=== PATIENT | female | born 1965 ===

== ENCOUNTER 2017-10-28 15:37 | Inpatient (IN) | payer OTHER, MEDICARE ==
[2017-10-28 15:39] VITALS: BMI 49.6
[2017-10-28 17:32] LABS: BASO # 0.1 K/uL (0.0-0.2); BASO % 0.7 % (0.0-2.0); EOS # 0.2 K/uL (0.0-0.7); EOS % 2.7 % (0.0-4.0); HEMOGLOBIN 11.1 g/dL (11.0-16.0); LYMPH # 1.7 K/uL (1.0-4.3); LYMPH % 20.2 % (20.0-40.0); MEAN CELL VOLUME 75.5 fL (81.0-99.0); MEAN CORPUSCULAR HEMOGLOBIN 23.9 pg (27.0-31.0); MEAN CORPUSCULAR HGB CONC 31.6 g/dL (33.0-37.0); MEAN PLATELET VOLUME 8.1 fL (7.2-11.7); MONO # 0.4 K/uL (0.0-0.8); MONO % 4.6 % (0.0-10.0); NEUT % 71.8 % (50.0-75.0); RBC 4.66 Mil/uL (3.80-5.20); RED CELL DISTRIBUTION WIDTH 16.5 % (11.5-14.5); WHITE BLOOD COUNT 8.4 K/uL (4.8-10.8)
[2017-10-28 17:45] LABS: ALB/GLOB RATIO 1.3 (1.0-2.1); ALBUMIN 4.5 g/dL (3.5-5.0); ALT/SGPT 37 U/L (9-52); AST/SGOT 45 U/L (14-36); BLOOD UREA NITROGEN 22 mg/dL (7-17); CALCIUM 9.3 mg/dl (8.6-10.4); GFR AFRICAN-AMERICAN > 60; GFR NON-AFRICAN AMERICAN > 60
[2017-10-28 17:56] LABS: B-TYPE NATRIURETIC PEPTIDE 192 pg/mL (0-900)
[2017-10-28] MEDS ORDERED: Sodium Chloride 0.9% 1,000 ML ONE (18:02)
--- NOTE | 2017-10-28 18:21 | RAD ---
Date of service: 10/28/2017 PROCEDURE: CHEST RADIOGRAPH, 1 VIEW HISTORY: SOB COMPARISON: 03/24/2015 FINDINGS: LUNGS: Clear. PLEURA: No pneumothorax or pleural fluid seen. CARDIOVASCULAR: No radiographic findings to suggest acute or significant cardiovascular disease. OSSEOUS STRUCTURES: No significant abnormalities. VISUALIZED UPPER ABDOMEN: Normal. OTHER FINDINGS: None. IMPRESSION: No active disease. No acute/significant interval changes.
--- NOTE | 2017-10-28 18:27 | C.PDOC ---
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) Current Symptoms Are (Timing): Better Severity: Moderate Quality: "Pain" Associated Symptoms: Dyspnea, Diaphoresis Additional History Per: Prior Records Past Medical History Reviewed: Historical Data, Nursing Documentation, Vital Signs Vital Signs: Last Vital Signs Temp 97.8 F 10/28/17 16:02 Pulse 54 L 10/28/17 17:22 Resp 20 10/28/17 17:22 BP 149/82 10/28/17 16:02 Pulse Ox 100 10/28/17 17:22 - Medical History PMH: Anemia (IRON DEFICIENCY), Asthma (never hospitalized), Atrial Fibrillation , HTN Surgical History: Endoscopy - [facility] Procedures CORONAR ARTERIOGR-2 CATH (06/16/14) LEFT HEART CARDIAC CATH (06/16/14) LT HEART ANGIOCARDIOGRAM (06/16/14) Family History: States: Unknown Family Hx - Social History Hx Tobacco Use: No Hx Alcohol Use: No Hx Substance Use: No - Immunization History Hx Tetanus Toxoid Vaccination: No Hx Influenza Vaccination: No Hx Pneumococcal Vaccination: No Review Of Systems Except As Marked, All Systems Reviewed And Found Negative. Constitutional: Negative for: Fever Cardiovascular: Positive for: Chest Pain, Light Headedness Respiratory: Positive for: Shortness of Breath. Negative for: Hemoptysis Gastrointestinal: Negative for: Vomiting Genitourinary: Negative for: Dysuria Musculoskeletal: Negative for: Neck Pain, Leg Pain Skin: Negative for: Rash Neurological: Negative for: Weakness, Numbness Physical Exam - Physical Exam Appears: Non-toxic, No Acute Distress Skin: Normal Color, Warm, Dry, No Rash Head: Atraumatic, Normacephalic Eye(s): bilateral: Normal Inspection, PERRL, EOMI Neck: Normal ROM, Supple Chest: Symmetrical, No Deformity, No Tenderness Cardiovascular: Rhythm Regular Respiratory: Normal Breath Sounds, No Accessory Muscle Use Gastrointestinal/Abdominal: Soft, No Tenderness Back: No CVA Tenderness Extremity: Normal ROM, No Pedal Edema, No Calf Tenderness Neurological/Psych: Oriented x3, Normal Motor, Normal Sensation ED Course And Treatment - Laboratory Results Result Diagrams: 10/28/17 17:27 10/28/17 17:27 Lab Interpretation: No Acute Changes ECG: Interpreted By Me, Viewed By Me ECG Rhythm: Sinus Bradycardia, Nonspecific Changes Rate From EC O2 Sat by Pulse Oximetry: 100 Pulse Ox Interpretation: Normal - Radiology CXR: Viewed By Me, Read By Radiologist CXR Interpretation: Yes: No Acute Disease Progress - Interventions Interventions:: Observation, Intravenous fluid, Oxygen - Medications Administered Oral: Aspirin - Data Reviewed Data Reviewed: Lab, Diagnostic imaging, EKG, Old records - Patient Status Patient status: Partially improved - Continuity of Care Discussed patient case with:: Patient, ED Nurse, PMD Disposition Discussed With : Leticia Husain Comment: He accepted pt on his service. He recommended giving pt 81mg of aspirin. Doctor Will See Patient In The: Hospital Counseled Patient/Family Regarding: Studies Performed, Diagnosis - Disposition Disposition: HOSPITALIZED Disposition Time: 18:30 Condition: FAIR - Clinical Impression Clinical Impression: Acute chest pain
[2017-10-29] MEDS ORDERED: Glucagon Recombinant 1 mg Inj IV STA ×2 (10:43)
[2017-10-29] MEDS ORDERED: Ranolazine 500 mg Extended Release Tablets PO SCH (10:45)
[2017-10-29] MEDS ORDERED: Glucagon Recombinant 1 mg Inj IV ONE ×2 (11:00→11:45)
[2017-10-29 11:03] LABS: BASO % 0.9 % (0.0-2.0); EOS # 0.3 K/uL (0.0-0.7); HEMOGLOBIN 10.1 g/dL (11.0-16.0); LYMPH # 1.9 K/uL (1.0-4.3); LYMPH % 33.1 % (20.0-40.0); MEAN CELL VOLUME 75.3 fL (81.0-99.0); MEAN CORPUSCULAR HEMOGLOBIN 24.3 pg (27.0-31.0); MEAN CORPUSCULAR HGB CONC 32.2 g/dL (33.0-37.0); MONO # 0.3 K/uL (0.0-0.8); NEUT # 3.1 K/uL (1.8-7.0); NRBC % 0.1 % (0.0-2.0); RBC 4.15 Mil/uL (3.80-5.20); RED CELL DISTRIBUTION WIDTH 16.5 % (11.5-14.5); WHITE BLOOD COUNT 5.7 K/uL (4.8-10.8)
[2017-10-29 11:22] LABS: ALB/GLOB RATIO 1.4 (1.0-2.1); ALBUMIN 3.9 g/dL (3.5-5.0); ALT/SGPT 31 U/L (9-52); AST/SGOT 29 U/L (14-36); BLOOD UREA NITROGEN 16 mg/dL (7-17); CALCIUM 9.2 mg/dl (8.6-10.4); GFR AFRICAN-AMERICAN > 60; GFR NON-AFRICAN AMERICAN > 60
--- NOTE | 2017-10-29 13:22 | PCM.RRT ---
EMERGENCY VETERINARIAN Nurses Assessment - Situation Date: 10/29/17 Time EMERGENCY VETERINARIAN was called: 10:45 - Head Head Exam: ATRAUMATIC, NORMAL INSPECTION, NORMOCEPHALIC - Eyes Eye Exam: EOMI, Normal appearance, PERRL - Respiratory Exam Respiratory Exam: Clear to Ausculation Bilateral, NORMAL BREATHING PATTERN - Cardiovascular Exam Cardiovascular Exam: Bradycardia, REGULAR RHYTHM - GI/Abdominal Exam GI & Abdominal Exam: Soft, Normal Bowel Sounds - Neurological Exam Neurological Exam: Alert, Awake, CN II-XII Intact, Normal Gait, Oriented x3 Plan - Assessment of Findings&Treatment Plan 52 year old female with a past medical history of atrial fibrillation (on anticoagulation) who was admitted for chest pain. This morning the patient began to have chest pain and felt lightheaded and dizzy. Initial Vitals:144/75 bp / 35 HR /98% Room air Patient was found to be symptomatic bradycardia Plan: -Metoprolol Discontinued -3 mg IVP Glucagon given -ICU consulted -CBC, CMP, TSH, Troponin Ordered. -Magnesium, Phosphorus ordered. -Ranexa ordered for Tomorrow A.M. -EKG Disposition: Patient was seen by ICU and was moved to the unit for a glucagon drip and close monitoring of her heart rate. Dr. Husain was made aware of the current clinical condition.
--- NOTE | 2017-10-29 13:23 | CP.PCM.CON ---
<Vania Agee - Last Filed: 10/29/17 13:28> History of Present Illness - History of Present Illness History of Present Illness: 52 yo F w/ PMHx of moderate pulmonary HTN, A fib(on Eliquis), chronic iron def anemia, obesity(s/p lap band removal and sleeve gastrectomy(08/30), presented to ED(10/28) with complaints of chest pain, dyspnea, diaphoresis and dizziness x1day. Symptoms relieved with IVF, O2 and aspirin while in ED and pt transferred to floor. Currently admitted to ICU after an BUNCHER HAND was called this morning due to symptomatic bradycardia. Pt began feeling diaphoretic and dizzy again after receiving Lopressor; HR found to be in 30s-40s with no change after glucagon x3. Admitted to ICU for further management. Pt seen and examined at bedside. Patient reports nausea from Glucagon drip, headache, feeling tired. Pt denies chest pain, dyspnea, tachycardia, palpitations, edema. Review of Systems - Constitutional Constitutional: Fatigue - Cardiovascular Cardiovascular: Diaphoresis. absent: Chest Pain, Dyspnea, Leg Edema, Palpitations - Respiratory Respiratory: absent: Cough, Dyspnea - Gastrointestinal Gastrointestinal: Nausea. absent: Abdominal Pain, Diarrhea, Vomiting - Neurological Neurological: Dizziness, Headaches Past Patient History - Past Medical History & Family History Past Medical History?: Yes - Past Social History Smoking Status: Never Smoked - CARDIAC Hx Atrial Fibrillation: Yes Hx Hypertension: Yes - PULMONARY Hx Asthma: Yes (never hospitalized) - NEUROLOGICAL Hx Neurological Disorder: Yes Hx Dizziness: Yes Hx Vertigo: Yes - HEENT Hx HEENT Problems: No - ENDOCRINE/METABOLIC Hx Endocrine Disorders: No - HEMATOLOGICAL/ONCOLOGICAL Hx Anemia: Yes (IRON DEFICIENCY) - INTEGUMENTARY Hx Dermatological Problems: No - MUSCULOSKELETAL/RHEUMATOLOGICAL Hx Musculoskeletal Disorders: Yes Hx Falls: Yes (A LONG TIME AGO NO FX.) Other/Comment: torn rotator cuff right shoulder - GASTROINTESTINAL Hx Gastrointestinal Disorders: Yes (lap band) Hx Bowel Surgery: Yes (Lap band) - GENITOURINARY/GYNECOLOGICAL Hx Genitourinary Disorders: No - PSYCHIATRIC Hx Substance Use: No - SURGICAL HISTORY Hx Surgeries: Yes Hx Tubal Ligation: Yes - ANESTHESIA Hx Anesthesia: Yes Hx Anesthesia Reactions: No Hx Malignant Hyperthermia: No Meds Allergies/Adverse Reactions: Allergies Allergy/AdvReac Type Severity Reaction Status Date / Time cinnamon Allergy Intermediate ITCHING Verified 10/28/17 16:04 [place] And Derivatives Allergy Intermediate ITCHING Verified 10/28/17 16:04 - Medications Medications: Current Medications Apixaban (Eliquis) 2.5 mg PO DAILY [facility] Last Admin: 10/29/17 09:14 Dose: 2.5 mg Aspirin (Ecotrin) 81 mg PO DAILY [facility] Last Admin: 10/29/17 09:14 Dose: 81 mg Glucagon 10 mg/ Dextrose 100 mls @ 82.55 mls/hr IV ONCE ONE PRN Reason: 0.07 MG/KG/HR Stop: 10/29/17 13:12 Last Admin: 10/29/17 12:20 Dose: 82.55 mls/hr Ranolazine (Ranexa) 500 mg PO BID [facility] Rosuvastatin Calcium (Crestor) [address] [facility] Physical Exam - Constitutional Appears: Well, Non-toxic, No Acute Distress - Head Exam Head Exam: ATRAUMATIC, NORMAL INSPECTION, NORMOCEPHALIC - Eye Exam Eye Exam: EOMI - ENT Exam ENT Exam: Mucous Membranes Moist - Respiratory Exam Respiratory Exam: Clear to Auscultation Bilateral, NORMAL BREATHING PATTERN. absent: Chest Wall Tenderness - Cardiovascular Exam Cardiovascular Exam: REGULAR RHYTHM - GI/Abdominal Exam GI & Abdominal Exam: Normal Bowel Sounds, Soft. absent: Distended - Neurological Exam Neurological exam: Alert, Oriented x3 Results - Vital Signs Recent Vital Signs: Last Vital Signs Temp 97.5 F L 10/29/17 07:29 Pulse 45 L 10/29/17 11:20 Resp 20 10/29/17 11:20 BP 138/72 10/29/17 11:20 Pulse Ox 95 10/29/17 11:20 - Labs Result Diagrams: 10/29/17 10:56 10/29/17 10:56 Labs: Laboratory Results - last 24 hr 10/28/17 10/28/17 10/29/17 17:27 17:27 01:56 WBC 8.4 RBC 4.66 Hgb 11.1 Hct 35.2 MCV 75.5 L D MCH 23.9 L MCHC 31.6 L RDW 16.5 H Plt Count 406 H MPV 8.1 Neut % (Auto) 71.8 Lymph % (Auto) 20.2 Hunt % (Auto) 4.6 Eos % (Auto) 2.7 Baso % (Auto) 0.7 Neut # (Auto) 6.0 Lymph # (Auto) 1.7 Hunt # (Auto) 0.4 Eos # (Auto) 0.2 Baso # (Auto) 0.1 Sodium 143 Potassium 4.2 Chloride 104 Carbon Dioxide 28 Anion Gap 16 BUN 22 H Creatinine 0.7 Est GFR ( Amer) > 60 Est GFR (Non-Af Amer) > 60 POC Glucose (mg/dL) Random Glucose 105 Calcium 9.3 Phosphorus Magnesium Total Bilirubin 0.3 AST 45 H ALT 37 Alkaline Phosphatase 100 Troponin I < 0.0120 < 0.0120 NT-Pro-B Natriuret Pep 192 Total Protein 7.8 Albumin 4.5 Globulin 3.3 Albumin/Globulin Ratio 1.3 TSH 3rd Generation 10/29/17 10/29/17 10/29/17 10:22 10:56 10:56 WBC RBC Hgb Hct MCV MCH MCHC RDW Plt Count MPV Neut % (Auto) Lymph % (Auto) Hunt % (Auto) Eos % (Auto) Baso % (Auto) Neut # (Auto) Lymph # (Auto) Hunt # (Auto) Eos # (Auto) Baso # (Auto) Sodium 142 Potassium 4.0 Chloride 104 Carbon Dioxide 25 Anion Gap 16 BUN 16 Creatinine 0.6 L Est GFR ( Amer) > 60 Est GFR (Non-Af Amer) > 60 POC Glucose (mg/dL) 102 Random Glucose 88 Calcium 9.2 Phosphorus 3.5 Magnesium 2.3 Total Bilirubin 0.5 AST 29 ALT 31 Alkaline Phosphatase 82 Troponin I < 0.0120 NT-Pro-B Natriuret Pep Total Protein 6.8 Albumin 3.9 Globulin 2.8 Albumin/Globulin Ratio 1.4 TSH 3rd Generation 1.45 10/29/17 10/29/17 10/29/17 10:56 11:30 13:01 WBC 5.7 RBC 4.15 Hgb 10.1 L Hct 31.2 L MCV 75.3 L MCH 24.3 L MCHC 32.2 L RDW 16.5 H Plt Count 381 MPV 8.0 Neut % (Auto) 55.0 Lymph % (Auto) 33.1 Hunt % (Auto) 6.0 Eos % (Auto) 5.0 H Baso % (Auto) 0.9 Neut # (Auto) 3.1 Lymph # (Auto) 1.9 Hunt # (Auto) 0.3 Eos # (Auto) 0.3 Baso # (Auto) 0.0 Sodium Potassium Chloride Carbon Dioxide Anion Gap BUN Creatinine Est GFR ( Amer) Est GFR (Non-Af Amer) POC Glucose (mg/dL) 126 H 130 H Random Glucose Calcium Phosphorus Magnesium Total Bilirubin AST ALT Alkaline Phosphatase Troponin I NT-Pro-B Natriuret Pep Total Protein Albumin Globulin Albumin/Globulin Ratio TSH 3rd Generation Assessment & Plan - Assessment and Plan (Free Text) Assessment: 52 yo F w/ PMHx of moderate pulmonary HTN, A fib(on Eliquis), chronic iron def anemia, obesity(s/p lap band removal and sleeve gastrectomy(08/30), admitted to ICU for BUNCHER HAND called for symptomatic bradycardia w/ HR in the 30s. 1. Symptomatic bradycardia -d/c lopressor 50mg BID -HR stable in mid 40s-50s -SYL, trops -x2 -Ranexa per Dr. Husain; follow up w/ recs 2. A fib -Eliquis 2.5mg -aspirin 81mg 3. Chronic iron deficiency anemia -Hgb 10.1 -continue to monitor, unlikely source of sxm aneta - Date & Time Date: 10/29/17 Time: 13:46 <Luke Luciano S - Last Filed: 10/29/17 17:56> Meds - Medications Medications: Current Medications Apixaban (Eliquis) 2.5 mg PO DAILY [facility] Last Admin: 10/29/17 09:14 Dose: 2.5 mg Aspirin (Ecotrin) 81 mg PO DAILY [facility] Last Admin: 10/29/17 09:14 Dose: 81 mg Ranolazine (Ranexa) 500 mg PO BID [facility] Rosuvastatin Calcium (Crestor) 10 mg PO HS [facility] Results - Vital Signs Recent Vital Signs: Last Vital Signs Temp 98.4 F 10/29/17 16:00 Pulse 41 L 10/29/17 17:07 Resp 14 10/29/17 17:07 BP 120/61 10/29/17 17:07 Pulse Ox 100 10/29/17 17:07 - Labs Result Diagrams: 10/29/17 10:56 10/29/17 10:56 Labs: Laboratory Results - last 24 hr 10/28/1718 10/29/17 17:27 01:56 10:22 WBC RBC Hgb Hct MCV MCH MCHC RDW Plt Count MPV Neut % (Auto) Lymph % (Auto) Hunt % (Auto) Eos % (Auto) Baso % (Auto) Neut # (Auto) Lymph # (Auto) Hunt # (Auto) Eos # (Auto) Baso # (Auto) Sodium Potassium Chloride Carbon Dioxide Anion Gap BUN Creatinine Est GFR ( Amer) Est GFR (Non-Af Amer) POC Glucose (mg/dL) 102 Random Glucose Calcium Phosphorus Magnesium Total Bilirubin AST ALT Alkaline Phosphatase Troponin I < 0.0120 < 0.0120 NT-Pro-B Natriuret Pep 192 Total Protein Albumin Globulin Albumin/Globulin Ratio TSH 3rd Generation 10/29/17 10/29/17 10/29/17 10:56 10:56 10:56 WBC 5.7 RBC 4.15 Hgb 10.1 L Hct 31.2 L MCV 75.3 L MCH 24.3 L MCHC 32.2 L RDW 16.5 H Plt Count 381 MPV 8.0 Neut % (Auto) 55.0 Lymph % (Auto) 33.1 Hunt % (Auto) 6.0 Eos % (Auto) 5.0 H Baso % (Auto) 0.9 Neut # (Auto) 3.1 Lymph # (Auto) 1.9 Hunt # (Auto) 0.3 Eos # (Auto) 0.3 Baso # (Auto) 0.0 Sodium 142 Potassium 4.0 Chloride 104 Carbon Dioxide 25 Anion Gap 16 BUN 16 Creatinine 0.6 L Est GFR ( Amer) > 60 Est GFR (Non-Af Amer) > 60 POC Glucose (mg/dL) Random Glucose 88 Calcium 9.2 Phosphorus 3.5 Magnesium 2.3 Total Bilirubin 0.5 AST 29 ALT 31 Alkaline Phosphatase 82 Troponin I < 0.0120 NT-Pro-B Natriuret Pep Total Protein 6.8 Albumin 3.9 Globulin 2.8 Albumin/Globulin Ratio 1.4 TSH 3rd Generation 1.45 10/29/17 10/29/17 11:30 13:01 WBC RBC Hgb Hct MCV MCH MCHC RDW Plt Count MPV Neut % (Auto) Lymph % (Auto) Hunt % (Auto) Eos % (Auto) Baso % (Auto) Neut # (Auto) Lymph # (Auto) Hunt # (Auto) Eos # (Auto) Baso # (Auto) Sodium Potassium Chloride Carbon Dioxide Anion Gap BUN Creatinine Est GFR ( Amer) Est GFR (Non-Af Amer) POC Glucose (mg/dL) 126 H 130 H Random Glucose Calcium Phosphorus Magnesium Total Bilirubin AST ALT Alkaline Phosphatase Troponin I NT-Pro-B Natriuret Pep Total Protein Albumin Globulin Albumin/Globulin Ratio TSH 3rd Generation Attending/Attestation - Attestation I have personally seen and examined this patient.: Yes I have fully participated in the care of the patient.: Yes I have reviewed all pertinent clinical information: Yes Notes (Text): 10/29/17 17:53 patient seen and examined 52-year-old female transferred to ICU for bradycardia after she received Lopressor glucagon 1 mg IV push given and patient started on glucogan drip ICU observation hold Beta blockers
--- NOTE | 2017-10-29 17:45 | CARD ---
APPROVED REPORT Date of service: 10/28/2017 EKG Measurement Heart [id number] <Conclusion> Sinus bradycardia Otherwise normal ECG
[2017-10-30 06:34] LABS: ALB/GLOB RATIO 1.2 (1.0-2.1); ALBUMIN 3.8 g/dL (3.5-5.0); ALT/SGPT 38 U/L (9-52); AST/SGOT 23 U/L (14-36); BLOOD UREA NITROGEN 20 mg/dL (7-17); GFR AFRICAN-AMERICAN > 60; GFR NON-AFRICAN AMERICAN > 60
[2017-10-30 06:38] LABS: BASO % 0.5 % (0.0-2.0); EOS # 0.3 K/uL (0.0-0.7); EOS % 4.4 % (0.0-4.0); HEMOGLOBIN 10.6 g/dL (11.0-16.0); LYMPH # 1.7 K/uL (1.0-4.3); LYMPH % 27.1 % (20.0-40.0); MEAN CELL VOLUME 75.2 fL (81.0-99.0); MEAN CORPUSCULAR HEMOGLOBIN 23.4 pg (27.0-31.0); MEAN CORPUSCULAR HGB CONC 31.2 g/dL (33.0-37.0); MONO # 0.3 K/uL (0.0-0.8); MONO % 4.7 % (0.0-10.0); NEUT # 3.9 K/uL (1.8-7.0); NEUT % 63.3 % (50.0-75.0); RBC 4.53 Mil/uL (3.80-5.20); RED CELL DISTRIBUTION WIDTH 16.5 % (11.5-14.5); WHITE BLOOD COUNT 6.2 K/uL (4.8-10.8)
[2017-10-30] MEDS: Ranolazine 500 mg Extended Release Tablets PO SCH ×2 (09:37→17:18)
--- NOTE | 2017-10-30 17:06 | CARD ---
APPROVED REPORT Date of service: 10/29/2017 EKG Measurement Heart [id number] <Conclusion> Sinus bradycardia Otherwise normal ECG
--- NOTE | 2017-10-30 17:06 | CARD ---
APPROVED REPORT Date of service: 10/29/2017 EKG Measurement Heart [id number] <Conclusion> Sinus bradycardia Otherwise normal ECG
--- NOTE | 2017-10-30 17:28 | CP.CCUPN ---
<Vania Agee - Last Filed: 10/30/17 18:17> CCU Subjective - Physician Review Subjective (Free Text): 10/30/17 17:26 52 yo F w/ PMHx of moderate pulmonary HTN, A fib(on Eliquis), chronic iron def anemia, obesity(s/p lap band removal and sleeve gastrectomy(08/30), presented to ED(10/28) with complaints of chest pain, dyspnea, diaphoresis and dizziness x1day. Symptoms relieved with IVF, O2 and aspirin while in ED and pt transferred to floor. Currently admitted to ICU after an ASSISTANT OFFICE MANAGER was called this morning due to symptomatic bradycardia. No acute events overnight, pt's HR remaining stable but bradycardic, mostly 40s and 50s. CCU Objective - Vital Signs / Intake & Output Vital Signs (Last 4 hours): Vital Signs Temp Pulse Resp BP Pulse Ox 10/30/17 16:00 97.8 F 45 L 14 97 10/30/17 15:07 60 15 136/79 98 10/30/17 15:00 55 L 15 97 10/30/17 14:07 56 L 15 135/81 98 Intake and Output (Last 8hrs): Intake & Output 10/30/17 10/30/17 10/30/17 06:59 14:59 22:59 Intake Total 0 480 Output Total 600 200 Balance -600 280 Intake: Oral 0 480 Output: Urine 600 200 Urine, Voided 600 200 - Physical Exam Head: Positive for: Atraumatic, Normocephalic Extroacular Muscles: Positive for: EOMI Mouth: Positive for: Moist Mucous Membranes Respiratory/Chest: Positive for: Clear to Auscultation, Good Air Exchange. Negative for: Respiratory Distress, Accessory Muscle Use, Wheezes Cardiovascular: Positive for: Normal S1, S2, Bradycardic. Negative for: Murmurs Abdomen: Positive for: Normal Bowel Sounds. Negative for: Tenderness, Distention Upper Extremity: Positive for: Normal Inspection. Negative for: Cyanosis Lower Extremity: Positive for: Normal Inspection. Negative for: Edema Neurological: Positive for: GCS=15 Psychiatric: Positive for: Alert, Oriented x 3, Normal Insight - Medications Active Medications: Active Medications Generic Name Dose Route Start Last Admin Trade Name Freq PRN Reason Stop Dose Admin Apixaban 2.5 mg 10/29/17 10:00 10/30/17 09:37 Eliquis PO 2.5 mg DAILY F[facility]ER Administration Aspirin 81 mg 10/29/17 10:00 10/30/17 09:38 Ecotrin PO 81 mg DAILY FOSTER Administration Ranolazine 500 mg 10/30/17 10:00 10/30/17 17:18 Ranexa PO 500 mg BID F[facility]ER Administration Rosuvastatin Calcium 10 mg 10/29/17 22:00 10/29/17 21:20 Crestor PO 10 mg HS FOSTER Administration - Patient Studies Lab Studies: Lab Studies 10/30/17 10/30/17 Range/Units 06:10 06:10 WBC 6.2 (4.8-10.8) K/uL RBC 4.53 (3.80-5.20) Mil/uL Hgb 10.6 L (11.0-16.0) g/dL Hct 34.1 (34.0-47.0) % MCV 75.2 L (81.0-99.0) fL MCH 23.4 L (27.0-31.0) pg MCHC 31.2 L (33.0-37.0) g/dL RDW 16.5 H (11.5-14.5) % Plt Count 355 (130-400) K/uL MPV 8.0 (7.2-11.7) fL Neut % (Auto) 63.3 (50.0-75.0) % Lymph % (Auto) 27.1 (20.0-40.0) % [place] % (Auto) 4.7 (0.0-10.0) % Eos % (Auto) 4.4 H (0.0-4.0) % Baso % (Auto) 0.5 (0.0-2.0) % Neut # (Auto) 3.9 (1.8-7.0) K/uL Lymph # (Auto) 1.7 (1.0-4.3) K/uL [place] # (Auto) 0.3 (0.0-0.8) K/uL Eos # (Auto) 0.3 (0.0-0.7) K/uL Baso # (Auto) 0.0 (0.0-0.2) K/uL Sodium 142 (132-148) mmol/L Potassium 3.9 (3.6-5.2) mmol/L Chloride 103 (98-107) mmol/L Carbon Dioxide 29 (22-30) mmol/L Anion Gap 14 (10-20) BUN 20 H (7-17) mg/dL Creatinine 0.7 (0.7-1.2) mg/dL Est GFR ( Amer) > 60 Est GFR (Non-Af Amer) > 60 Random Glucose 81 (65-105) mg/dL Calcium 9.0 (8.6-10.4) mg/dl Phosphorus 4.0 (2.5-4.5) mg/dL Magnesium 2.2 (1.6-2.3) mg/dL Total Bilirubin 0.4 (0.2-1.3) mg/dL AST 23 (14-36) U/L ALT 38 (9-52) U/L Alkaline Phosphatase 81 (38-126) U/L Total Protein 6.9 (6.3-8.3) g/dL Albumin 3.8 (3.5-5.0) g/dL Globulin 3.1 (2.2-3.9) gm/dL Albumin/Globulin Ratio 1.2 (1.0-2.1) Laboratory Results - last 24 hr 10/30/17 10/30/17 06:10 06:10 WBC 6.2 RBC 4.53 Hgb 10.6 L Hct 34.1 MCV 75.2 L MCH 23.4 L MCHC 31.2 L RDW 16.5 H Plt Count 355 MPV 8.0 Neut % (Auto) 63.3 Lymph % (Auto) 27.1 [place] % (Auto) 4.7 Eos % (Auto) 4.4 H Baso % (Auto) 0.5 Neut # (Auto) 3.9 Lymph # (Auto) 1.7 [place] # (Auto) 0.3 Eos # (Auto) 0.3 Baso # (Auto) 0.0 Sodium 142 Potassium 3.9 Chloride 103 Carbon Dioxide 29 Anion Gap 14 BUN 20 H Creatinine 0.7 Est GFR ( Amer) > 60 Est GFR (Non-Af Amer) > 60 Random Glucose 81 Calcium 9.0 Phosphorus 4.0 Magnesium 2.2 Total Bilirubin 0.4 AST 23 ALT 38 Alkaline Phosphatase 81 Total Protein 6.9 Albumin 3.8 Globulin 3.1 Albumin/Globulin Ratio 1.2 Review of Systems - Constitutional Constitutional: absent: Fever, Chills, Sweats - Cardiovascular Cardiovascular: absent: Chest Pain, Diaphoresis, Dyspnea, Edema - Respiratory Respiratory: absent: Cough, Dyspnea, Dyspnea on Exertion - Gastrointestinal Gastrointestinal: Constipation. absent: Abdominal Pain, Nausea - Neurological Neurological: absent: Dizziness, Weakness Critical Care Progress Note - Nutrition Nutrition: Nutrition Category Date Time Status Heart Healthy Diet [DIET] Diets 10/29/17 Breakfast Active Assessment/Plan - Assessment and Plan (Free Text) Assessment: 52 yo F admitted to ICU with bradycardia 1. Persisitent bradycardia -d/c lopressor 50mg BID -HR stable in mid 40s-50s -SYL, trops -x2 -Ranexa per Dr. Husain; follow up w/ recs -EP Dr. Lawrence consulted 2. A fib -Eliquis 2.5mg -aspirin 81mg 3. Chronic iron deficiency anemia -Hgb 10.6 -continue to monitor 4. Constipation -colace Ppx SCD - Date & Time Date: 10/30/17 Time: 18:22 <Luke Luciano S - Last Filed: 10/30/17 18:38> CCU Objective - Vital Signs / Intake & Output Vital Signs (Last 4 hours): Vital Signs Temp Pulse Resp BP Pulse Ox 10/30/17 17:07 60 16 124/68 99 10/30/17 16:07 48 L 11 L 135/74 100 10/30/17 16:00 97.8 F 45 L 14 97 10/30/17 15:07 60 15 136/79 98 10/30/17 15:00 55 L 15 97 Intake and Output (Last 8hrs): Intake & Output 10/30/17 10/30/17 10/30/17 06:59 14:59 22:59 Intake Total 0 480 240 Output Total 600 200 200 Balance -600 280 40 Intake: Oral 0 480 240 Output: Urine 600 200 200 Urine, Voided 600 200 200 Other: # Voids Urine, Voided 1 1 - Medications Active Medications: Active Medications Generic Name Dose Route Start Last Admin Trade Name Freq PRN Reason Stop Dose Admin Apixaban 2.5 mg 10/29/17 10:00 10/30/17 09:37 Eliquis PO 2.5 mg DAILY FOSTER Administration Aspirin 81 mg 10/29/17 10:00 07/18/18 09:38 Ecotrin PO 81 mg DAILY [facility] Administration Docusate Sodium 100 mg 10/30/17 17:45 10/30/17 17:56 Colace PO 100 mg DAILY [facility] Administration Ranolazine 500 mg 10/30/17 10:00 10/30/17 17:18 Ranexa PO 500 mg BID [facility] Administration Rosuvastatin Calcium 10 mg 10/29/17 22:00 10/29/17 21:20 Crestor PO 10 mg HS [facility]OST[facility] Administration - Patient Studies Lab Studies: Lab Studies 10/30/17 10/30/17 Range/Units 06:10 06:10 WBC 6.2 (4.8-10.8) K/uL RBC 4.53 (3.80-5.20) Mil/uL Hgb 10.6 L (11.0-16.0) g/dL Hct 34.1 (34.0-47.0) % MCV 75.2 L (81.0-99.0) fL MCH 23.4 L (27.0-31.0) pg MCHC 31.2 L (33.0-37.0) g/dL RDW 16.5 H (11.5-14.5) % Plt Count 355 (130-400) K/uL MPV 8.0 (7.2-11.7) fL Neut % (Auto) 63.3 (50.0-75.0) % Lymph % (Auto) 27.1 (20.0-40.0) % [place] % (Auto) 4.7 (0.0-10.0) % Eos % (Auto) 4.4 H (0.0-4.0) % Baso % (Auto) 0.5 (0.0-2.0) % Neut # (Auto) 3.9 (1.8-7.0) K/uL Lymph # (Auto) 1.7 (1.0-4.3) K/uL [place] # (Auto) 0.3 (0.0-0.8) K/uL Eos # (Auto) 0.3 (0.0-0.7) K/uL Baso # (Auto) 0.0 (0.0-0.2) K/uL Sodium 142 (132-148) mmol/L Potassium 3.9 (3.6-5.2) mmol/L Chloride 103 (98-107) mmol/L Carbon Dioxide 29 (22-30) mmol/L Anion Gap 14 (10-20) BUN 20 H (7-17) mg/dL Creatinine 0.7 (0.7-1.2) mg/dL Est GFR ( Amer) > 60 Est GFR (Non-Af Amer) > 60 Random Glucose 81 (65-105) mg/dL Calcium 9.0 (8.6-10.4) mg/dl Phosphorus 4.0 (2.5-4.5) mg/dL Magnesium 2.2 (1.6-2.3) mg/dL Total Bilirubin 0.4 (0.2-1.3) mg/dL AST 23 (14-36) U/L ALT 38 (9-52) U/L Alkaline Phosphatase 81 (38-126) U/L Total Protein 6.9 (6.3-8.3) g/dL Albumin 3.8 (3.5-5.0) g/dL Globulin 3.1 (2.2-3.9) gm/dL Albumin/Globulin Ratio 1.2 (1.0-2.1) Laboratory Results - last 24 hr 10/30/17 10/30/17 06:10 06:10 WBC 6.2 RBC 4.53 Hgb 10.6 L Hct 34.1 MCV 75.2 L MCH 23.4 L MCHC 31.2 L RDW 16.5 H Plt Count 355 MPV 8.0 Neut % (Auto) 63.3 Lymph % (Auto) 27.1 [place] % (Auto) 4.7 Eos % (Auto) 4.4 H Baso % (Auto) 0.5 Neut # (Auto) 3.9 Lymph # (Auto) 1.7 [place] # (Auto) 0.3 Eos # (Auto) 0.3 Baso # (Auto) 0.0 Sodium 142 Potassium 3.9 Chloride 103 Carbon Dioxide 29 Anion Gap 14 BUN 20 H Creatinine 0.7 Est GFR ( Amer) > 60 Est GFR (Non-Af Amer) > 60 Random Glucose 81 Calcium 9.0 Phosphorus 4.0 Magnesium 2.2 Total Bilirubin 0.4 AST 23 ALT 38 Alkaline Phosphatase 81 Total Protein 6.9 Albumin 3.8 Globulin 3.1 Albumin/Globulin Ratio 1.2 Critical Care Progress Note - Nutrition Nutrition: Nutrition Category Date Time Status Heart Healthy Diet [DIET] Diets 10/29/17 Breakfast Active Attending/Attestation - Attestation I have personally seen and examined this patient.: Yes I have fully participated in the care of the patient.: Yes I have reviewed all pertinent clinical information: Yes Notes (Text): 10/30/17 18:38 Patient seen and examined in the intensive care unit. Denies shortness of breath, denies chest pain, denies dizziness EPS evaluation to rule out sick sinus syndrome Continue present treatment for now
--- NOTE | 2017-10-30 22:49 | CP.PCM.CON ---
History of Present Illness - History of Present Illness History of Present Illness: EP consult Re: bradycardia and dizziness Chart imaging reviewed patient examined Discussed with patients and children 52 year old with history of dizziness (~ 3 years) recurring once a month with witnessed "turning pale, about to fall, difficult to walk felt weak" inconsistently associated with palpitations and diaphoresis; these episodes have occurred at times lying down in bed and rarely with a vertiginous feeling Denied headache vomiting hypoglycemia tinnitus deafness diplopia dysarthria focal weakness seizures or loss of consciousness Admitted 7.16 with chest pain dyspnea dizziness and admitted to the floor and while speaking to her mother developed dizziness diaphoresis and low heart rates and was attributed to a single dose of lopressor; she was brought to the ICU for monitoring; heart rates remained low for sometime despite glucagon; systemic pressures however were maintained She has been worked up by dr husain in the past extensively with a negative tilt table study, "normal" cardiac catheterization and a loop recorder was implanted six months back; she was placed on anticoagulation for paroxysmal atrial fibrillation Past medical Asthma "pulmonary hypertension-moderate" Past surgery: lap band/Sleeve Medications: reviewed Allergies citrus Denied substance abuse Grandmother had a pacemaker placed; Exam NO distress Obese Pulse 60 regular BP 130/80mmHg Normal venous pressures No goiter Clear lungs Distant heart sounds No edema No nystagmus EKG: sinus bradycardia Labs: reviewed Past Patient History - Past Medical History & Family History Past Medical History?: Yes - Past Social History Smoking Status: Never Smoked - CARDIAC Hx Atrial Fibrillation: Yes Hx Hypertension: Yes - PULMONARY Hx Asthma: Yes (never hospitalized) - NEUROLOGICAL Hx Neurological Disorder: Yes Hx Dizziness: Yes Hx Vertigo: Yes - HEENT Hx HEENT Problems: No - ENDOCRINE/METABOLIC Hx Endocrine Disorders: No - HEMATOLOGICAL/ONCOLOGICAL Hx Anemia: Yes (IRON DEFICIENCY) - INTEGUMENTARY Hx Dermatological Problems: No - MUSCULOSKELETAL/RHEUMATOLOGICAL Hx Musculoskeletal Disorders: Yes Hx Falls: Yes (A LONG TIME AGO NO FX.) Other/Comment: torn rotator cuff right shoulder - GASTROINTESTINAL Hx Gastrointestinal Disorders: Yes (lap band) Hx Bowel Surgery: Yes (Lap band) - GENITOURINARY/GYNECOLOGICAL Hx Genitourinary Disorders: No - PSYCHIATRIC Hx Substance Use: No - SURGICAL HISTORY Hx Surgeries: Yes Hx Tubal Ligation: Yes - ANESTHESIA Hx Anesthesia: Yes Hx Anesthesia Reactions: No Hx Malignant Hyperthermia: No Meds Allergies/Adverse Reactions: Allergies Allergy/AdvReac Type Severity Reaction Status Date / Time cinnamon Allergy Intermediate ITCHING Verified 10/28/17 16:04 [place] And Derivatives Allergy Intermediate ITCHING Verified 10/28/17 16:04 - Medications Medications: Current Medications Apixaban (Eliquis) 2.5 mg PO DAILY [facility] Last Admin: 10/30/17 09:37 Dose: 2.5 mg Aspirin (Ecotrin) 81 mg PO DAILY [facility] Last Admin: 10/30/17 09:38 Dose: 81 mg Docusate Sodium (Colace) 100 mg PO DAILY [facility] Last Admin: 10/30/17 17:56 Dose: 100 mg Ranolazine (Ranexa) 500 mg PO BID [facility] Last Admin: 10/30/17 17:18 Dose: 500 mg Rosuvastatin Calcium (Crestor) 10 mg PO HS [facility] Last Admin: 10/30/17 22:04 Dose: 10 mg Results - Vital Signs Recent Vital Signs: Last Vital Signs Temp 97.8 F 10/30/17 16:00 Pulse 57 L 10/30/17 22:07 Resp 14 10/30/17 22:07 BP 138/75 10/30/17 22:07 Pulse Ox 99 10/30/17 22:07 - Labs Result Diagrams: 10/30/17 06:10 10/30/17 06:10 Labs: Laboratory Results - last 24 hr 10/30/17 10/30/17 06:10 06:10 WBC 6.2 RBC 4.53 Hgb 10.6 L Hct 34.1 MCV 75.2 L MCH 23.4 L MCHC 31.2 L RDW 16.5 H Plt Count 355 MPV 8.0 Neut % (Auto) 63.3 Lymph % (Auto) 27.1 [place] % (Auto) 4.7 Eos % (Auto) 4.4 H Baso % (Auto) 0.5 Neut # (Auto) 3.9 Lymph # (Auto) 1.7 [place] # (Auto) 0.3 Eos # (Auto) 0.3 Baso # (Auto) 0.0 Sodium 142 Potassium 3.9 Chloride 103 Carbon Dioxide 29 Anion Gap 14 BUN 20 H Creatinine 0.7 Est GFR ( Amer) > 60 Est GFR (Non-Af Amer) > 60 Random Glucose 81 Calcium 9.0 Phosphorus 4.0 Magnesium 2.2 Total Bilirubin 0.4 AST 23 ALT 38 Alkaline Phosphatase 81 Total Protein 6.9 Albumin 3.8 Globulin 3.1 Albumin/Globulin Ratio 1.2 Assessment & Plan - Assessment and Plan (Free Text) Assessment: has episodes of dizziness pallor diaphoresis temporally related to slow heart rates suggesting a proximate correlation; Rare occurence of vertigo, difficulty in walking 'lassitude' are outliers raising possibilities of vestibular and neurological processes Her profile again suggests a hemodynamic basis for her symptoms related to the bradyarrhythmia unmasked by beta blockers; association with atrial fibrillation reflects the tachy-aneta/sick sinus syndrome likely degenerative (albiet premature), ?familial; sleep apnea hypoxemia could be additional cristopher stressors There is no evidence of a vagal event, orthostatic hypotension, a mechanical cardiac obstruction or a setting for ventricular tachyarrhythmias or primary electrical abnormalities (QTc, Brugada etc)) or hypoglycemia Options at this point include 1. Exclude ENT/Neurological basis 2. Repeat tilt table study if the prior study was remote 3. Explore and correct sleep apnea/hypoxemia 4. Permanent pacemaker implant In the interim period would avoid medications with cristopher blocking properties, and electrolyte abnormalities Plan: See prior discussion DW Dr. Husain
--- NOTE | 2017-10-30 23:05 | CP.PCM.PN ---
Subjective - Date & Time of Evaluation Date of Evaluation: 10/30/17 Time of Evaluation: 09:10 - Subjective Subjective: sequence of events overnight noted sinus bradycardia treated wit IV glucagon this AM, patient remains bradycardic HR low 40's w/ occasional dizziness hemodynamically stable Objective - Vital Signs/Intake and Output Vital Signs (last 24 hours): Temp Pulse Resp BP Pulse Ox 97.8 F 57 L 14 138/75 99 10/30/17 16:00 10/30/17 22:07 10/30/17 22:07 10/30/17 22:07 10/30/17 22:07 Intake and Output: 10/30/17 10/31/17 18:59 06:59 Intake Total 720 300 Output Total 400 400 Balance 320 -100 - Medications Medications: Current Medications Apixaban (Eliquis) 2.5 mg PO DAILY [facility] Last Admin: 10/30/17 09:37 Dose: 2.5 mg Aspirin (Ecotrin) 81 mg PO DAILY [facility] Last Admin: 10/30/17 09:38 Dose: 81 mg Docusate Sodium (Colace) 100 mg PO DAILY [facility] Last Admin: 10/30/17 17:56 Dose: 100 mg Ranolazine (Ranexa) 500 mg PO BID [facility] Last Admin: 10/30/17 17:18 Dose: 500 mg Rosuvastatin Calcium (Crestor) 10 mg PO HS [facility] Last Admin: 10/30/17 22:04 Dose: 10 mg - Labs Labs: 10/30/17 06:10 10/30/17 06:10 - Constitutional Appears: Non-toxic - Head Exam Head Exam: NORMAL INSPECTION - Eye Exam Eye Exam: absent: Scleral icterus - ENT Exam ENT Exam: Mucous Membranes Moist - Neck Exam Neck Exam: Full ROM - Respiratory Exam Respiratory Exam: Decreased Breath Sounds - Cardiovascular Exam Cardiovascular Exam: REGULAR RHYTHM - GI/Abdominal Exam GI & Abdominal Exam: Soft. absent: Tenderness - Extremities Exam Extremities Exam: Calf Tenderness. absent: Pedal Edema - Neurological Exam Neurological Exam: Alert, Oriented x3 Assessment and Plan - Assessment and Plan (Free Text) Assessment: Bradycardia Atypical chest pain Sleep apnea syndrome Obesity Plan: EP consult Monitor HR Avoid AV cristopher blocking agents
--- NOTE | 2017-10-30 23:12 | CP.PCM.HP ---
History of Present Illness - History of Present Illness History of Present Illness: CC chest pain HPI Past Patient History - Past Medical History & Family History Past Medical History?: Yes - Past Social History Smoking Status: Never Smoked - CARDIAC Hx Atrial Fibrillation: Yes Hx Hypertension: Yes - PULMONARY Hx Asthma: Yes (never hospitalized) - NEUROLOGICAL Hx Neurological Disorder: Yes Hx Dizziness: Yes Hx Vertigo: Yes - HEENT Hx HEENT Problems: No - ENDOCRINE/METABOLIC Hx Endocrine Disorders: No - HEMATOLOGICAL/ONCOLOGICAL Hx Anemia: Yes (IRON DEFICIENCY) - INTEGUMENTARY Hx Dermatological Problems: No - MUSCULOSKELETAL/RHEUMATOLOGICAL Hx Musculoskeletal Disorders: Yes Hx Falls: Yes (A LONG TIME AGO NO FX.) Other/Comment: torn rotator cuff right shoulder - GASTROINTESTINAL Hx Gastrointestinal Disorders: Yes (lap band) Hx Bowel Surgery: Yes (Lap band) - GENITOURINARY/GYNECOLOGICAL Hx Genitourinary Disorders: No - PSYCHIATRIC Hx Substance Use: No - SURGICAL HISTORY Hx Surgeries: Yes Hx Tubal Ligation: Yes - ANESTHESIA Hx Anesthesia: Yes Hx Anesthesia Reactions: No Hx Malignant Hyperthermia: No Meds Allergies/Adverse Reactions: Allergies Allergy/AdvReac Type Severity Reaction Status Date / Time cinnamon Allergy Intermediate ITCHING Verified 10/28/17 16:04 [place] And Derivatives Allergy Intermediate ITCHING Verified 10/28/17 16:04 Results - Vital Signs Recent Vital Signs: Last Vital Signs Temp 97.8 F 10/30/17 16:00 Pulse 61 10/30/17 23:00 Resp 18 10/30/17 23:00 BP 138/75 10/30/17 22:07 Pulse Ox 100 10/30/17 23:00 - Labs Result Diagrams: 10/30/17 06:10 10/30/17 06:10 Labs: Laboratory Results - last 24 hr 10/30/17 10/30/17 06:10 06:10 WBC 6.2 RBC 4.53 Hgb 10.6 L Hct 34.1 MCV 75.2 L MCH 23.4 L MCHC 31.2 L RDW 16.5 H Plt Count 355 MPV 8.0 Neut % (Auto) 63.3 Lymph % (Auto) 27.1 [place] % (Auto) 4.7 Eos % (Auto) 4.4 H Baso % (Auto) 0.5 Neut # (Auto) 3.9 Lymph # (Auto) 1.7 [place] # (Auto) 0.3 Eos # (Auto) 0.3 Baso # (Auto) 0.0 Sodium 142 Potassium 3.9 Chloride 103 Carbon Dioxide 29 Anion Gap 14 BUN 20 H Creatinine 0.7 Est GFR ( Amer) > 60 Est GFR (Non-Af Amer) > 60 Random Glucose 81 Calcium 9.0 Phosphorus 4.0 Magnesium 2.2 Total Bilirubin 0.4 AST 23 ALT 38 Alkaline Phosphatase 81 Total Protein 6.9 Albumin 3.8 Globulin 3.1 Albumin/Globulin Ratio 1.2 Assessment & Plan - Assessment and Plan (Free Text) Assessment: Atypical chest pain Paroxysmal afib by hx Obesity Hx of Pulmonary HTN Plan: Admit for Observation Trops q8hrs x3 w/ ekg - Date & Time Date: 10/29/17 Time: 08:10
[2017-10-31 06:31] LABS: BASO # 0.1 K/uL (0.0-0.2); BASO % 0.8 % (0.0-2.0); EOS # 0.4 K/uL (0.0-0.7); EOS % 5.4 % (0.0-4.0); HEMOGLOBIN 11.1 g/dL (11.0-16.0); LYMPH # 1.8 K/uL (1.0-4.3); LYMPH % 27.8 % (20.0-40.0); MEAN CELL VOLUME 75.6 fL (81.0-99.0); MEAN CORPUSCULAR HEMOGLOBIN 24.4 pg (27.0-31.0); MEAN CORPUSCULAR HGB CONC 32.3 g/dL (33.0-37.0); MEAN PLATELET VOLUME 8.3 fL (7.2-11.7); MONO # 0.4 K/uL (0.0-0.8); MONO % 5.9 % (0.0-10.0); NEUT # 3.9 K/uL (1.8-7.0); NEUT % 60.1 % (50.0-75.0); NRBC % 0.1 % (0.0-2.0); RBC 4.55 Mil/uL (3.80-5.20); RED CELL DISTRIBUTION WIDTH 16.1 % (11.5-14.5); WHITE BLOOD COUNT 6.4 K/uL (4.8-10.8)
[2017-10-31 06:44] LABS: ALB/GLOB RATIO 1.3 (1.0-2.1); ALBUMIN 4.1 g/dL (3.5-5.0); ALT/SGPT 29 U/L (9-52); AST/SGOT 23 U/L (14-36); BLOOD UREA NITROGEN 17 mg/dL (7-17); CALCIUM 9.1 mg/dl (8.6-10.4); GFR AFRICAN-AMERICAN > 60; GFR NON-AFRICAN AMERICAN > 60
[2017-10-31] MEDS: Ranolazine 500 mg Extended Release Tablets PO SCH ×2 (10:37→17:48)
[2017-11-01] MEDS: Ranolazine 500 mg Extended Release Tablets PO SCH ×2 (10:02→17:37)
--- NOTE | 2017-11-01 12:57 | CP.PCM.PN ---
Subjective - Date & Time of Evaluation Date of Evaluation: 10/31/17 Time of Evaluation: 08:15 - Subjective Subjective: remains bradycardic HR 48-52 off beta-hayley x 2 days seen by EP Objective - Vital Signs/Intake and Output Vital Signs (last 24 hours): Temp Pulse Resp BP Pulse Ox 97.5 F L 56 L 12 147/80 100 11/01/17 08:00 11/01/17 08:07 11/01/17 08:07 11/01/17 08:07 11/01/17 08:00 Intake and Output: 11/01/17 11/01/17 06:59 18:59 Intake Total 870 Output Total 600 Balance 270 - Medications Medications: Current Medications Apixaban (Eliquis) 5 mg PO BID [facility] Last Admin: 11/01/17 10:02 Dose: 5 mg Aspirin (Ecotrin) 81 mg PO DAILY [facility] Last Admin: 11/01/17 10:02 Dose: 81 mg Docusate Sodium (Colace) 100 mg PO DAILY [facility] Last Admin: 11/01/17 10:02 Dose: 100 mg Ranolazine (Ranexa) 500 mg PO BID [facility] Last Admin: 11/01/17 10:02 Dose: 500 mg Rosuvastatin Calcium (Crestor) 10 mg PO HS [facility] Last Admin: 10/31/17 22:45 Dose: 10 mg - Labs Labs: 10/31/17 06:20 10/31/17 06:20 - Constitutional Appears: Non-toxic - Head Exam Head Exam: ATRAUMATIC - Eye Exam Eye Exam: absent: Scleral icterus - ENT Exam ENT Exam: Mucous Membranes Moist - Neck Exam Neck Exam: Full ROM. absent: Lymphadenopathy - Respiratory Exam Respiratory Exam: Decreased Breath Sounds - Cardiovascular Exam Cardiovascular Exam: REGULAR RHYTHM - GI/Abdominal Exam GI & Abdominal Exam: Tenderness. absent: Soft - Extremities Exam Extremities Exam: Pedal Edema. absent: Calf Tenderness - Neurological Exam Neurological Exam: Altered, Oriented x3 Assessment and Plan - Assessment and Plan (Free Text) Assessment: Sinus bradycardia - r/o SSS v drug-induced(beta hayley) Paroxysmal Afib Pulmonary HTN Obesity Atypical chest pain Plan: Off meds with chronotropic effect We will get [employer] to interrogate Loop recorder
--- NOTE | 2017-11-01 13:34 | CP.PCM.PN ---
Subjective - Date & Time of Evaluation Date of Evaluation: 11/01/17 Time of Evaluation: 09:40 - Subjective Subjective: Pt seen with at bedside HR 48-52bpm off drugs with negative chronotropic effect Objective - Vital Signs/Intake and Output Vital Signs (last 24 hours): Temp Pulse Resp BP Pulse Ox 97.7 F 56 L 16 141/81 98 11/01/17 12:00 11/01/17 13:07 11/01/17 13:07 11/01/17 13:07 11/01/17 12:00 Intake and Output: 11/01/17 11/01/17 06:59 18:59 Intake Total 870 Output Total 600 Balance 270 - Medications Medications: Current Medications Apixaban (Eliquis) 5 mg PO BID [facility] Last Admin: 11/01/17 10:02 Dose: 5 mg Aspirin (Ecotrin) 81 mg PO DAILY [facility] Last Admin: 11/01/17 10:02 Dose: 81 mg Docusate Sodium (Colace) 100 mg PO DAILY [facility] Last Admin: 11/01/17 10:02 Dose: 100 mg Ranolazine (Ranexa) 500 mg PO BID [facility] Last Admin: 11/01/17 10:02 Dose: 500 mg Rosuvastatin Calcium (Crestor) 10 mg PO HS [facility] Last Admin: 10/31/17 22:45 Dose: 10 mg - Labs Labs: 10/31/17 06:20 10/31/17 06:20 - Constitutional Appears: No Acute Distress - Head Exam Head Exam: NORMAL INSPECTION - Eye Exam Eye Exam: Scleral icterus - Neck Exam Neck Exam: absent: Lymphadenopathy - Respiratory Exam Respiratory Exam: Clear to Ausculation Bilateral - Cardiovascular Exam Cardiovascular Exam: Bradycardia - GI/Abdominal Exam GI & Abdominal Exam: Soft - Extremities Exam Extremities Exam: Pedal Edema. absent: Calf Tenderness - Neurological Exam Neurological Exam: Alert, Oriented x3 Assessment and Plan - Assessment and Plan (Free Text) Assessment: Sinus bradycardia Atypical chest pain Paroxysmal afib HTN Pulmonary HTN Plan: Cont monitoring Awaiting [employer] to interrogate loop Cont eliquis
[2017-11-02 07:59] VITALS: TEMP 98.2; O2SAT 98
[2017-11-02] MEDS: Ranolazine 500 mg Extended Release Tablets PO SCH (09:23)
[2017-11-02 11:11] VITALS: BP 138/57; PULSE 60; RESP 11
== END 2017-11-02 11:30 | disposition home or self-care (01) | DRG 309 ==
LOC: C.ER 15:37 → UNDOADMOB 18:31 → C.9E 18:31 → C.5S 22:47 → C.9E 22:47 → OBSVTOIN 10-29 11:39 → INTOOBSV 10-29 11:39 → C.9I 10-29 12:22 → C.5S 10-29 12:22 → UNDODISIN 11-02 11:30
PROVIDERS: ADMIT Internal Medicine; ATTEND Internal Medicine
DX: I49.5 Sick sinus syndrome (principal); R07.89 Other chest pain; I48.0 Paroxysmal atrial fibrillation; I10 Essential (primary) hypertension; D50.9 Iron deficiency anemia, unspecified; I27.20 Pulmonary hypertension, unspecified; R09.02 Hypoxemia; J45.909 Unspecified asthma, uncomplicated; G47.30 Sleep apnea, unspecified; E66.9 Obesity, unspecified; K59.00 Constipation, unspecified; Z68.42 Body mass index [BMI] 45.0-49.9, adult; Z79.01 Long term (current) use of anticoagulants; Z79.899 Other long term (current) drug therapy; Z79.82 Long term (current) use of aspirin; Z98.84 Bariatric surgery status; Z98.51 Tubal ligation status